=== PATIENT | male | born 1950 | race Caucasian/White ===

== ENCOUNTER 2016-12-14 15:50 | Emergency (ER) | payer MEDICARE, BC ==
[2016-12-14 16:03] VITALS: TEMP 98.1
[2016-12-14] MEDS ORDERED: SODIUM CHLORIDE 0.9% 500 ML IV STA (16:49)
--- NOTE | 2016-12-14 17:04 | ED ---
General Adult HPI - General Chief complaint: Recheck/Abnormal Lab/Rx Stated complaint: feet and ankle swelling sent by PCP Time Seen by Provider: 12/14/16 16:40 Source: patient, RN notes reviewed Mode of arrival: wheelchair Limitations: no limitations - History of Present Illness Initial comments: 66-year-old male presents to the emergency department with a chief complaint of fall. Patient states that for the past 5 or 6 years he has these episodes where he becomes lightheaded and then he has falls. Patient states he did not pass out entirely but he didn't feels if he was about to pass out. Patient states there is no chest pain or shortness of breath during this episode. Patient states that he did hit his head. Patient also has noticed some right ankle pain since the fall. Patient also complains of right knee pain and left ankle pain as well. Patient states the fall happened 4 days ago. Patient was sent here by due to the swelling in his ankle as well as the head injury she thought that he should be evaluated. Patient states this time the only complaint he has his right ankle pain. Patient states there is been no fever chills. Patient denies any chest pain or shortness of breath following the incident. Patient states he was concerned due to his symptoms so he thought that he should be evaluated. Patient denies any recent fever, chills, shortness of breath, chest pain, back pain, abdominal pain, nausea vomiting, numbness or tingling, dysuria or hematuria, constipation or diarrhea, headaches or visual changes, or any other current symptoms. - Related Data Home Medications Medication Instructions Recorded Confirmed Citalopram Hydrobromide [CeleXA] 40 mg PO HS 09/01/14 12/14/16 OLANZapine [ZyPREXA] 10 mg PO HS 09/01/14 12/14/16 [facility] 2 tab PO HS 01/25/15 12/14/16 OLANZapine [ZyPREXA] 20 mg PO HS 01/25/15 12/14/16 Divalproex Sodium [Depakote] 1,500 mg PO QAM 12/14/16 12/14/16 Previous Rx's Medication Instructions Recorded Hydrocodone/Acetaminophen [[place] 1 each PO Q6HR PRN #20 tab 12/14/16 5-325] Allergies Allergy/AdvReac Type Severity Reaction Status Date / Time No Known Allergies Allergy Verified 12/14/16 17:25 Review of Systems ROS Statement: Those systems with pertinent positive or pertinent negative responses have been documented in the HPI. ROS Other: All systems not noted in ROS Statement are negative. 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 colon polyp History of Any Multi-Drug Resistant Organisms: None Reported Past Surgical History: No Surgical Hx Reported Additional Past Surgical History / Comment(s): colonoscopy Past Anesthesia/Blood Transfusion Reactions: No Reported Reaction Past Psychological History: Anxiety, Bipolar, Depression, Schizoaffective Disorder Smoking Status: Never smoker Past Alcohol Use History: None Reported Past Drug Use History: None Reported - Past Family History Mother Family Medical History: No Reported History General Exam Limitations: no limitations General appearance: alert, in no apparent distress Head exam: Present: atraumatic, normocephalic, normal inspection Eye exam: Present: normal appearance, PERRL, EOMI. Absent: scleral icterus, conjunctival injection, periorbital swelling Neck exam: Present: normal inspection. Absent: tenderness, meningismus, lymphadenopathy Respiratory exam: Present: normal lung sounds bilaterally. Absent: respiratory distress, wheezes, rales, rhonchi, stridor Cardiovascular Exam: Present: regular rate, normal rhythm, normal heart sounds. Absent: systolic murmur, diastolic murmur, rubs, gallop, clicks GI/Abdominal exam: Present: soft, normal bowel sounds. Absent: distended, tenderness, guarding, rebound, rigid Extremities exam: Present: full ROM, tenderness (Over the right ankle the right knee and the left ankle), normal capillary refill, pedal edema (Minimal moreon the right ankle), joint swelling (Right ankle), other (Due to the extensive ecchymosis around the right ankle; this right knee and some ecchymosis to the left ankle there is concern for possible bone injury from the fall.). Absent: calf tenderness Back exam: Present: normal inspection Neurological exam: Present: alert, oriented X3 Psychiatric exam: Present: normal affect, normal mood Skin exam: Present: warm, dry, intact, normal color. Absent: rash Course Vital Signs 12/14/16 16:00 Temperature 98.1 F Pulse Rate 87 Respiratory 20 Rate Blood Pressure 111/70 O2 Sat by Pulse 98 Oximetry EKG Findings - EKG Comments: EKG Findings:: Sinus rhythm with marked sinus arrhythmia, left axis deviation, no ST elevation or depression is noted. Ventricular rate 65, OK interval 160 Procedures - Orthopedic Splinting/Casting Injury #1 Side: right Lower Extremity Injury Location: ankle Lower Extremity Immobilizer: stirrup splint Medical Decision Making - Medical Decision Making 66-year-old male presents for fall after feeling lightheaded at home 4 days ago. This time patient does appear to have a right fibular fracture. Patient was placed in a splint and given follow-up to orthopedic. We did give the patient a prescription for a wheelchair to help with mobilization at home. We discussed care follow-up return parameters. Patient's troponin is negative and EKG does. Appropriate as well as CT head. We discussed continued outpatient follow-up. Lightheadedness which patient states is chronic and he had lightheadedness for about 5-6 years now. Patient is given the plan all questions have been answered. He will be discharged. - Lab Data Result diagrams: 12/14/16 17:04 12/14/16 17:04 Lab Results 12/14/16 12/14/16 12/14/16 Range/Units 17:04 17:04 17:04 WBC 6.1 (3.8-10.6) k/uL RBC 4.02 L (4.30-5.90) m/uL Hgb 13.0 (13.0-17.5) gm/dL Hct 41.4 (39.0-53.0) % MCV 103.1 H (80.0-100.0) fL MCH 32.4 (25.0-35.0) pg MCHC 31.5 (31.0-37.0) g/dL RDW 14.6 (11.5-15.5) % Plt Count 190 (150-450) k/uL Neutrophils % 58 % Lymphocytes % 29 % Monocytes % 9 % Eosinophils % 2 % Basophils % 1 % Neutrophils # 3.5 (1.3-7.7) k/uL Lymphocytes # 1.8 (1.0-4.8) k/uL Monocytes # 0.5 (0-1.0) k/uL Eosinophils # 0.1 (0-0.7) k/uL Basophils # 0.0 (0-0.2) k/uL Macrocytosis Slight Sodium 144 (137-145) mmol/L Potassium 4.5 (3.5-5.1) mmol/L Chloride 107 (98-107) mmol/L Carbon Dioxide 27 (22-30) mmol/L Anion Gap 10 mmol/L BUN 24 H (9-20) mg/dL Creatinine 1.10 (0.66-1.25) mg/dL Est GFR (MDRD) Af Amer >60 (>60 ml/min/1.73 sqM) Est GFR (MDRD) Non-Af >60 (>60 ml/min/1.73 sqM) Glucose 84 (74-99) mg/dL Calcium 9.6 (8.4-10.2) mg/dL Total Bilirubin 0.6 (0.2-1.3) mg/dL AST 21 (17-59) U/L ALT 33 (21-72) U/L Alkaline Phosphatase 60 (38-126) U/L Troponin I <0.012 (0.000-0.034) ng/mL Total Protein 6.2 L (6.3-8.2) g/dL Albumin 3.7 (3.5-5.0) g/dL Urine Color Urine Appearance (Clear) Urine pH (5.0-8.0) Ur Specific [place] (1.001-1.035) Urine Protein (Negative) Urine Glucose (UA) (Negative) Urine Ketones (Negative) Urine Blood (Negative) Urine Nitrite (Negative) Urine Bilirubin (Negative) Urine Urobilinogen (<2.0) mg/dL Ur Leukocyte Esterase (Negative) 12/14/16 Range/Units 18:39 WBC (3.8-10.6) k/uL RBC (4.30-5.90) m/uL Hgb (13.0-17.5) gm/dL Hct (39.0-53.0) % MCV (80.0-100.0) fL MCH (25.0-35.0) pg MCHC (31.0-37.0) g/dL RDW (11.5-15.5) % Plt Count (150-450) k/uL Neutrophils % % Lymphocytes % % Monocytes % % Eosinophils % % Basophils % % Neutrophils # (1.3-7.7) k/uL Lymphocytes # (1.0-4.8) k/uL Monocytes # (0-1.0) k/uL Eosinophils # (0-0.7) k/uL Basophils # (0-0.2) k/uL Macrocytosis Sodium (137-145) mmol/L Potassium (3.5-5.1) mmol/L Chloride (98-107) mmol/L Carbon Dioxide (22-30) mmol/L Anion Gap mmol/L BUN (9-20) mg/dL Creatinine (0.66-1.25) mg/dL Est GFR (MDRD) Af Amer (>60 ml/min/1.73 sqM) Est GFR (MDRD) Non-Af (>60 ml/min/1.73 sqM) Glucose (74-99) mg/dL Calcium (8.4-10.2) mg/dL Total Bilirubin (0.2-1.3) mg/dL AST (17-59) U/L ALT (21-72) U/L Alkaline Phosphatase (38-126) U/L Troponin I (0.000-0.034) ng/mL Total Protein (6.3-8.2) g/dL Albumin (3.5-5.0) g/dL Urine Color Yellow Urine Appearance Clear (Clear) Urine pH 6.0 (5.0-8.0) Ur Specific [place] 1.015 (1.001-1.035) Urine Protein Negative (Negative) Urine Glucose (UA) Negative (Negative) Urine Ketones Negative (Negative) Urine Blood Negative (Negative) Urine Nitrite Negative (Negative) Urine Bilirubin Negative (Negative) Urine Urobilinogen <2.0 (<2.0) mg/dL Ur Leukocyte Esterase Negative (Negative) - Radiology Data Radiology results: report reviewed, image reviewed Disposition Clinical Impression: Right fibular fracture, Fall, Contusion of right knee, Contusion of left ankle , Minor head injury, Lightheadedness Disposition: HOME SELF-CARE Condition: Stable Instructions: Ankle Fracture (ED), Lightheadedness (ED) Additional Instructions: Please use medication as discussed. Please follow up with family doctor if symptoms have not improved over the next two days. Please return to the emergency room if your symptoms increase or worsen or for any other concerns. Prescriptions: Hydrocodone/Acetaminophen [[place] 5-325] 1 each PO Q6HR PRN #20 tab PRN Reason: Pain Referrals: Yayo Banda MD [Primary Care Provider] - 1-2 days Chad Perez MD [Medical Doctor] - 1-2 days Time of Disposition: 18:54
[2016-12-14 17:14] LABS: Basophils % (A) 1 %; CH 33.2; CHCM 32.4; Eosinophils # (A) 0.1 k/uL (0-0.7); Eosinophils % (A) 2 %; HCT 41.4 % (39.0-53.0); HDW 2.46; Luc # (Auto) 0.12; Luc % (Auto) 2; Lymphocytes # (A) 1.8 k/uL (1.0-4.8); Lymphocytes % (A) 29 %; MCH 32.4 pg (25.0-35.0); MCHC 31.5 g/dL (31.0-37.0); MCV 103.1 fL (80.0-100.0); Macrocytosis Slight; Mean Platelet Volume 7.8; Monocytes # (A) 0.5 k/uL (0-1.0); Monocytes % (A) 9 %; Neutrophils # (A) 3.5 k/uL (1.3-7.7); Neutrophils % (A) 58 %; RBC 4.02 m/uL (4.30-5.90); RDW 14.6 % (11.5-15.5); WBC 6.1 k/uL (3.8-10.6); WBC (Perox) 6.45
--- NOTE | 2016-12-14 17:31 | XR ---
EXAMINATION TYPE: XR chest 2V DATE OF EXAM: 12/14/2016 COMPARISON: 01/22/2013 HISTORY: Pain and swelling TECHNIQUE: Frontal and lateral views of the chest are obtained. FINDINGS: Heart and mediastinum are normal. Lungs are clear. Diaphragm is normal. Bony thorax is nor mal. IMPRESSION: Normal chest. No change.
--- NOTE | 2016-12-14 17:33 | XR ---
EXAMINATION TYPE: XR knee complete RT DATE OF EXAM: 12/14/2016 COMPARISON: NONE HISTORY: Pain TECHNIQUE: 3 views FINDINGS: I see no fracture nor dislocation. Joint spaces are fairly normal. There is mild spurring o n the superior patella. There is vascular calcification. There is mild spurring of the medial femoral and tibial condyles. IMPRESSION: Mild degenerative changes. No fracture.
--- NOTE | 2016-12-14 17:35 | XR ---
EXAMINATION TYPE: XR ankle complete bilateral DATE OF EXAM: 12/14/2016 COMPARISON: NONE HISTORY: Pain TECHNIQUE: 6 views FINDINGS: There are bilateral plantar and Achilles calcaneal spurs. There is a nondisplaced oblique fracture of the distal right fibula. There is soft tissue swelling ar ound the right ankle joint. I see no fracture on the left side. Joint spaces are fairly normal. IMPRESSION: There is acute fracture lateral malleolus of the right ankle without significant displace ment. Soft tissue swelling at the right ankle. No fracture seen on the left side. Calcaneal spurring.
[2016-12-14 17:43] LABS: ALT 33 U/L (21-72); AST 21 U/L (17-59); Alkaline Phosphatase 60 U/L (38-126); Anion Gap 10 mmol/L; Blood Urea Nitrogen 24 mg/dL (9-20); Calcium 9.6 mg/dL (8.4-10.2); Carbon Dioxide 27 mmol/L (22-30); Chloride 107 mmol/L (98-107); Glucose 84 mg/dL (74-99); Non-African American GFR(MDRD) >60 (>60 ml/min/1.73 sqM); Potassium 4.5 mmol/L (3.5-5.1); Sodium 144 mmol/L (137-145); Total Bilirubin 0.6 mg/dL (0.2-1.3); Total Protein 6.2 g/dL (6.3-8.2)
--- NOTE | 2016-12-14 18:24 | CT ---
EXAMINATION TYPE: CT brain wo con DATE OF EXAM: 12/14/2016 COMPARISON: 01/23/2013 HISTORY: Fall with posterior head injury. CT DLP: 1183.00 mGycm Automated exposure control for dose reduction was used. FINDINGS: There is cerebral cortical atrophy. There is no mass effect nor midline shift. There is no sign of in tracranial hemorrhage. There is a 1 cm mucous retention cyst in the right side of the ethmoid sinus. The calvarium is intact. IMPRESSION: CEREBRAL ATROPHY. NO ACUTE INTRACRANIAL ABNORMALITY. NO CHANGE.
[2016-12-14 18:48] LABS: Appearance,Urine Clear (Clear); Bilirubin,Urine Negative (Negative); Glucose,Urine (UA) Negative (Negative); Ketones,Urine Negative (Negative); Leukocyte Esterase,Urine Negative (Negative); Nitrite,Urine Negative (Negative); Protein,Urine Negative (Negative); Specific Gravity,Urine 1.015 (1.001-1.035); UA Billing (MACRO vs. MICRO) CHEM; Urobilinogen,Urine <2.0 mg/dL (<2.0)
[2016-12-14 19:15] VITALS: BP 150/79; PULSE 72; RESP 16
== END 2016-12-14 19:29 | disposition home or self-care (01) ==
LOC: EC 15:50
DX: S82.64XA Nondisplaced fracture of lateral malleolus of right fibula, initial encounter for closed fracture (principal); S80.01XA Contusion of right knee, initial encounter; S09.90XA Unspecified injury of head, initial encounter; F25.9 Schizoaffective disorder, unspecified; F31.9 Bipolar disorder, unspecified; F41.9 Anxiety disorder, unspecified; Z79.899 Other long term (current) drug therapy; W01.10XA Fall on same level from slipping, tripping and stumbling with subsequent striking against unspecified object, initial encounter
CPT/HCPCS: 29515; 36415; 70450; 71020; 80053; 81003; 84484; 85025; 93005; 96360; 96361; 99284